=== PATIENT | female | born 2000 | race Caucasian/White ===

== ENCOUNTER → 2018-01-26 12:52 | Outpatient (REF) | payer OTHER, SELFPAY ==
[2018-01-27 15:00] LABS: Chlamydia Result Negative; Specimen Description CERVIX
== END ==
LOC: LBN 12:52
PROVIDERS: PCP Pediatrics; Visit Provider Obstetrics & Gynecology Gynecology
DX: Z20.2 Contact with and (suspected) exposure to infections with a predominantly sexual mode of transmission (principal)
CPT/HCPCS: 87491

== ENCOUNTER 2018-05-04 14:48 | Outpatient (REF) | payer OTHER, SELFPAY ==
[2018-05-06 14:49] LABS: Chlamydia Result Negative; GC Result Negative; Specimen Description URINE
== END 2018-05-04 15:08 ==
LOC: LBN 14:48
PROVIDERS: PCP Pediatrics; Visit Provider Registered Nurse
DX: Z11.3 Encounter for screening for infections with a predominantly sexual mode of transmission (principal)
CPT/HCPCS: 87491; 87591

== ENCOUNTER 2019-01-23 07:36 | Day surgery (SDC) | payer OTHER, SELFPAY ==
[2019-01-23] VITALS (7 sets, daily range): BP systolic 128–156; BP diastolic 79–107; PULSE 65–94; RESP 16–24; TEMP 36.2–36.7; O2SAT 99–100
[2019-01-23] MEDS: Lactated Ringers 1,000 ML 80 ML IV (08:20)
--- NOTE | 2019-01-23 08:45 | W.PM.DSUDISC ---
Discharge Plan Disposition Patient Disposition: HOME Condition: Good Discharge Details Reason For Visit: T & A Attending Provider: Miguel Ángel Griggs Primary Care Provider: Karina Sanders Home Meds and New Rx's Prescriptions: No Action Nexplanon 68 MG implant 68 mg SQ ONCE Qty: 1 RF: 0 fluoxetine 20 mg capsule 20 mg PO DAILY Qty: 90 RF: 2 melatonin 5 mg Tablet 5 mg PO HS PRNRF: 0 Discharge Instructions Additional Instructions: see sheet Activity:: Activity as Tolerated Remove Dressings/Wound Care:: 24 hours Shower/Bathe:: 24 hours Diet:: As Tolerated DS: Diagnosis Discharge Diagnosis (1) Tonsillar hypertrophy: Status: Acute (2) Tonsillar calculus: Status: Acute (3) Chronic tonsillitis: Status: Chronic
[2019-01-23] MEDS: Oxymetazolone 0.05% SPRAY 15 ML BTL (09:03)
--- NOTE | 2019-01-23 09:10 | TONSIL_PTH ---
PATIENT: Paulette Harris LOC: [facility] U#:[id number] AGE/SX: 18/F ROOM: RE01/23/[address]: Miguel Ángel Griggs DO : 2000 BED: DIS: 01/23/2019 SPEC #: [id number] RECD: 01/23/19 12:38 STATUS: BEVERLY REQ #: [id number] KATHY: 01/23/19 09:[address]: Miguel Ángel Griggs DEPT: Surgical Specimen RECD BY: Karen Lan ENTERED: 01/23/19 12:39 SP TYPE: TONSIL OTHR DR: Karina Sanders APRN Tissues: 1 - TONSIL AGE 17 & OVER 2 - TONSIL AGE 17 & OVER Procedures: GROSS AND MICRO LEVEL 3 Comments: [id number]
--- NOTE | 2019-01-23 11:20 | ROE_ITS ---
DATE OF PROCEDURE: January 23, 2019 PREOPERATIVE DIAGNOSIS: 1. Chronic recurring tonsillitis. 2. Chronic tonsillar hypertrophy. 3. Chronic tonsillar calculus. POSTOPERATIVE DIAGNOSIS: Same. PROCEDURE: Tonsillectomy. SURGEON: Miguel Ángel Griggs D.O. ANESTHESIA: General. ESTIMATED BLOOD LOSS: 1 cc COMPLICATIONS: None. CONDITION: The patient tolerated the procedure well. INDICATIONS FOR PROCEDURE: This is a pleasant 18-year-old female who presents with a history of jailor jeremiah tonsillar infection, hypertrophy and calculi bilaterally. The decision was made forth to proceed with surgery. Risks and complications were discussed in detail. Consent was placed in the Chart. PROCEDURE IN DETAIL: Patient was brought back to the operating suite in stable condition, placed sup ine on the operating table, and intubated in normal fashion. The table was rotated 90 degrees. There was no evidence of submucosal clefting or bifid uvula. The McIvor retractor was placed in the oral ca vity and suspended from the Curtis stand. The right tonsil was grasped in the superior pole and mediali zed. Pinpoint cautery was used to develop the peritonsillar fascial plane, dissection was carried out to the upper and mid portions of the tonsil with final amputation conducted with suction cautery. Th ere was no bleeding within the right tonsillar fossa. Next, the left tonsil was grasped in the super ior pole with a curved Allis forceps and medialized. Pinpoint cautery was used to develop the periton sillar fascial plane. Dissection was carried out in the plane in the superior and mid portion of the tonsils. Final amputation was conducted with suction cautery without bleeding within left fossa, Vals flaherty was performed without bleeding. TMJ's were checked and were free of dislocation. Gastric content s suctioned. The patient tolerated the procedure well and went to PACU in stable condition.
== END 2019-01-23 11:15 | disposition home or self-care (01) ==
PROVIDERS: PCP Nurse Practitioner; Visit Provider Otolaryngology Otolaryngology/Facial Plastic Surgery
PROC: (CPT 42826; principal; 2019-01-23 08:30)
DX: J35.01 Chronic tonsillitis (principal); J35.8 Other chronic diseases of tonsils and adenoids
CPT/HCPCS: 42826; 81025; 88304; J0131; J1100; J1200; J2250; J2405; J3010

== ENCOUNTER 2020-01-03 13:47 | Outpatient (REF) | payer OTHER, SELFPAY ==
--- NOTE | 2020-01-03 13:00 | PAPFT_PTH ---
PATIENT: Paulette Harris LOC: N U#:[id number] AGE/SX: 19/F ROOM: RE01/03/[address]: Rosenda Blum NP : 2000 BED: DIS: 01/03/2020 SPEC #: [id number] RECD: 01/03/20 18:14 STATUS: BEVERLY REIlene #: [id number] KATHY: 01/03/20 13:[address]: Rosenda Blum NP DEPT: [facility] Cytology RECD BY: Karen Lan ENTERED: 01/03/20 18:15 SP TYPE: PAPFT OTHR DR: Karina Sanders APRN Tissues: 1 - CX/ENDOCX FOR PAP SMEARS Procedures: PAP THIN PREP/UVM Screening Comments: [id number] (CHLAMYDIA/GC)
[2020-01-04 14:37] LABS: Chlamydia Result Negative (Negative); GC Result Negative (Negative)
== END 2020-01-03 14:07 ==
LOC: LBN 13:47
PROVIDERS: PCP Nurse Practitioner; Visit Provider Nurse Practitioner Women's Health
DX: Z12.4 Encounter for screening for malignant neoplasm of cervix (principal)
CPT/HCPCS: 87491; 87591; 88142

== ENCOUNTER 2023-08-30 17:13 | Emergency (ER) | payer BC, SELFPAY ==
[2023-08-30 17:20] VITALS: BP 142/124; PULSE 99; RESP 20; TEMP 37.1; O2SAT 99
--- NOTE | 2023-08-30 17:52 | NUR.NOTE ---
Nursing Note: This nurse went through patient belongings in the emergency department before going down to zone B.
--- NOTE | 2023-08-30 18:31 | W.ED.GENAD ---
Discharge Plan Discharge Details Chief Complaint: PsychEval Clinical Impression: Suicidal ideations, Depression Primary Care Provider: Caitlyn Espinoza ED Provider: Nilson Bradford Home Meds and New Rx's Prescriptions: No Action multivitamin Tablet 1 tab PO DAILY benztropine 1 mg tablet 1 mg PO BID mirtazapine 15 mg tablet 15 mg PO QHS lurasidone 40 mg tablet 40 mg PO ONCE HPI General Date/Time Provider Initiated Documentation: 08/30/23 17:23. Limitations to Documentation: no limitations. Information obtained by: patient. HPI Narrative: 23-year-old female with past medical history of anxiety and depression presents for evaluation of worsening depression. She reports that her symptoms has been significantly worsening over the last week. She states that as of today she does not feel safe at home. She is having significant suicidal ideations. She does not have a plan. She has not made an attempt. She states that she is struggling to force herself to eat, brush her teeth or go to work. She sees a psychiatrist for medication management, but she does not do therapy. She states that she has had voluntary inpatient psychiatric care before and that she feels like this would be very beneficial for her now. Related Data Home Medications Medication Instructions Recorded Confirmed multivitamin 1 tab PO DAILY 06/27/19 08/30/23 benztropine 1 mg tablet 1 mg PO BID 08/30/23 08/30/23 lurasidone 40 mg tablet 40 mg PO ONCE 08/30/23 08/30/23 mirtazapine 15 mg tablet 15 mg PO QHS 08/30/23 08/30/23 Allergies Allergy/AdvReac Type Severity Reaction Status Date / Time tramadol AdvReac Mild Diarrhea Verified 08/30/23 17:31 General Stated Complaint: PsychEval DASIA: 2 Exam Narrative Exam Narrative: Review of Systems: All systems reviewed & are unremarkable except as noted in HPI and below Well-developed, no acute distress NCAT PERRL, normal conjunctiva RRR Unlabored respiratory effort Nondistended abdomen Extremities w/o deformity, no cyanosis, no edema No rashes or lesions. no focal neurologic deficits Appropriate mood and affect Course Vital Signs Vital signs: Vital Signs Temperature 37.1 C 08/30/23 17:20 Pulse 99 H 08/30/23 17:20 Respiratory Rate 20 08/30/23 17:20 Blood Pressure 142/124 H 08/30/23 17:20 Pulse Oximetry 99 08/30/23 17:20 Temperature 37.1 C 08/30/23 17:20 Temperature Source Temporal Artery Scan 08/30/23 17:20 Pulse 99 H 08/30/23 17:20 Respiratory Rate 20 08/30/23 17:20 Respiratory Effort Normal 08/30/23 17:27 Blood Pressure 142/124 H 08/30/23 17:20 Blood Pressure Position Sitting 08/30/23 17:20 Pulse Oximetry 99 08/30/23 17:20 Oxygen Delivery Method Room Air 08/30/23 17:20 Oxygen Flow Rate 0 08/30/23 17:20 Pain Level 0 08/30/23 17:20 Medical Decision Making Emergent evaluation of depression and suicidal ideation. Patient denies any attempt, ingestion or overdose. Denies any drug or alcohol use. At this time using the smart form, she is medically cleared. A urinary test has been ordered as well given her age. The patient was evaluated by [facility], after discussion with them, she will be a voluntary placement for inpatient psychiatric care. Her home medications and a diet have been ordered. She is otherwise stable and pending placement at this time. Medical Records Medical records reviewed: Yes I reviewed the patient's medical records. Lab Data Lab results reviewed: Yes I reviewed the patient's lab results. Quality:[facility] Health Related Social Needs: No Data to Display [facility] All Active Problems (Updated 08/30/23 @ 18:34 by Nilson Bradford MD) Depression (Chronic) Suicidal ideations (Acute) IUD surveillance (Acute 01/03/20) [place] Anxiety and depression (Acute) Encounter to establish care (Acute) Anxiety (Chronic) generalized. Tonsillar hypertrophy (Acute) Tonsillar calculus (Acute) Chronic tonsillitis (Chronic) Seen by ENT 10/2018. Plan for removal. Medical History Chlamydia contact (01/10/18) Gastroesophageal reflux disease on Zantac as baby- outgrown Surgical History History of tonsillectomy (01/23/19) Family History Grandfather Asthma Grandmother Essential hypertension Mother Essential hypertension Anxiety Father Alcohol abuse Anxiety Depression Maternal Aunt Breast cancer Social History Smoking/Tobacco Use Status: Current every day Tobacco Type: e-cigarettes Smoking risk assessment performed?: Yes Alcohol Intake: current Alcohol Intake frequency: holidays/special occasions only Alcohol type: beer and hard liquor Drug use: Occasionally Substance use type: marijuana Details: Marijuana a few times a week Adopted: No Caregiver/Support person: No Foster care: No Communication Needs: None Do you need help understanding health information?: Never current occupation: Student Sexually active: Yes Do you think of yourself as: straight/heterosexual Current gender identity: female What type of physical activity do you participate in: walking and running Duration: 45-60 minutes/day Frequency: 3-4 times per week Seatbelt use: always Helmet use: Yes Drive intox 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
[2023-08-30] MEDS: Benztropine 1 MG TAB PO (20:23)
[2023-08-30] MEDS: Mirtazapine 15 MG TAB PO (21:46)
--- NOTE | 2023-08-31 00:23 | PDOC.MHCN ---
Date of service: 08/30/23 Time of Service: 18:00 PHQ-9 Over the last 2 weeks, how often have you been bothered by any of the following problems? 1. Little interest or pleasure in doing things: nearly every day 2. Feeling down, depressed, or hopeless: nearly every day 3. Trouble falling or staying asleep, or sleeping too much: nearly every day 4. Feeling tired or having little energy: nearly every day 5. Poor appetite or overeating: more than half the days 6. Feeling bad about yourself - or that you are a failure or have let yourself and your family down: nearly every day 7. Trouble concentrating on things, such as reading the newspaper or watching television: more than half the days 8. Moving or speaking so slowly that other people could have noticed? - Or the opposite - being so fidgety or restless that you have been moving around a lot more than usual: more than half the days 9. Thoughts that you would be better off or of hurting yourself in some way: nearly every day Total score: 24 If you checked off any problems, how difficult have these problems made it for you to do your work, take care of things at home, or get along with other people?: extremely difficult Source: Developed by Drs. Joo Gunn, Janki Villa, Samir Snyder and colleagues, with an educational paramjit from [employer]. Suicide Severity Rate CSSRS Have you wished you were or wished you could go to sleep and not wake up?: Yes Have you actually had any thoughts of killing yourself?: Yes CSSRS2 Have you been thinking about how you might do this?: Yes Have you had these thoughts and had some intention of acting on them?: No Have you started to work out or worked out the details of how to kill yourself? Do you intend to carry out this plan?: No CSSRS3 Have you ever done anything, started to do anything or prepared to do anything to end your life?: Yes CSSRS4 Was this within the past three months?: No Screening Score Total Score: 6 Screening: Positive Mental Health Emergency Note Release [facility] release signed:: Yes Reason for Visit In the last 2 weeks has the pt presented for ES prior to today?: No Non Suicidal Self Injury Current: No History: No Safety Risk/Harm to Self or Others Current Ideation to Harm Self or Others: Yes to self. Intent: no, has no intent. Plan: no.does not have a plan. History of suicide attempt: yes,history of suicide attempt reported. Details of previous suicide attempt: Clients last attempt was years ago Asssessment/Mental Status Appearance: Unremarkable Attitude: Cooperative and Friendly Behavior: Unremarkable Speech: Normal Affect: Cogruent with mood Mood: Other (Overwhelmed and tense ) Thought process: Unremarkable and Goal directed Hallucinations: No evidence Delusions: No evidence Attention: Unremarkable Perception: Not impaired Orientation: Fully orientated Memory: Intact Insight: Good Judgement: Good Neurovegetative Symptoms Sleep: Increase Appetitie: Disordered (Client reports not having an appetite and struggling to eat.) Interests: Decrease Energy: Decrease Libido: Not applicable Substance Use: Have you used substances in the last 7 days?: yes, Vaping everyday and THC occasionally Impression Client reported to this communications writer that she has been suffering from an increase in her suicidal ideations and depression over the last month, and an addition increase within the past two weeks that have made the client seek additional help and support. Client reported that her ideations include vague plans to end her life by suicide. Client reported not access to means at home. Client reported the usage of alcohol, THC, and vaping. Client reported that her sleep has increased but it is not restful. Client reported that she struggles with her appetite, and forcing herself to eat. Client reported a decrease in her energy and interests. CLient reported that her past inpatient stay at [facility] was the most help inpatient stay the client has experienced and is interest in going back. Plan/Disposition Recommended Disposition: Hospitalization No. Plan: Client will remain at [facility] ED until inpatient placement is found to help the client address her current depression and suicidal ideations. Client will need daily reassessments till placed. Client will need an intake packet completed.? Reports/communication Outcome discussed with: ED/Personnel
[2023-08-31] MEDS: Benztropine 1 MG TAB PO (10:31)
[2023-08-31 11:48] VITALS: BP 109/69; PULSE 70; RESP 16; O2SAT 100
[2023-08-31] MEDS: Lurasidone 40 MG TAB PO (11:55)
[2023-08-31 12:16] LABS: Bilirubin Negative (Negative); Blood Negative (Negative); Clarity Clear (Clear); Glucose Negative (Negative); Ketones Negative (Negative); Leukocyte Esterase Trace (Negative); Nitrite Negative (Negative); Specific Gravity 1.025 (1.005-1.025); Urobilinogen 0.2 mg/dL (Up to 0.2)
[2023-08-31 12:24] LABS: Bacteria Many HPF (Negative); Crystals Negative HPF (Negative); Epithelial Cells Many HPF (Negative); Mucus Moderate (Negative); RBC 0-2 HPF (0-2)
[2023-08-31 12:25] LABS: C & S Indicated? No/Sq. Contamination; Casts Negative LPF (Negative)
[2023-08-31 12:30] LABS: *AMPHETAMINES SCREEN URINE Negative (Negative); *BARBITURATES SCREEN URINE Negative (Negative); *BENZODIAZEPINES SCREEN URINE Negative (Negative); Cannabinoids THC Positive (Negative); Cocaine Screen,Urine Negative (Negative); METHADONE URINE SCREEN Negative (Negative); OPIATES URINE SCREEN Negative (Negative)
[2023-08-31 12:31] LABS: Tricyclic Antidepressants Negative (Negative)
--- NOTE | 2023-08-31 14:29 | W.EDPROG ---
Date of service: 08/31/23 Time of Service: 14:29 Medical Decision Making Patient accepted at [place]. Resting actively no acute distress Quality:SDOH Health Related Social Needs: No Data to Display Sign Out Sign Out Data: Sign Out Comment: depression with increasing symptoms + SI, no attempt medically cleared eval'd by [facility], recommend voluntary placement. pending placement. home meds have been ordered. Last updated by Nilson Bradford MD at 08/30/23 21:53 Sign Out Comment: Depression and suicidal ideation, voluntary, pending placement. No interventions during shift Last updated by Armando Powell DO at 08/31/23 07:19 Discharge Plan Disposition Patient Disposition: Psychiatric Hospital/Unit Specific Psychiatric Facility: [facility] Condition: Stable Discharge Details Chief Complaint: PsychEval Clinical Impression: Suicidal ideations, Depression Primary Care Provider: Caitlyn Espinoza ED Provider: Romel Suárez Home Meds and New Rx's Prescriptions: No Action multivitamin Tablet 1 tab PO DAILY benztropine 1 mg tablet 1 mg PO BID mirtazapine 15 mg tablet 15 mg PO QHS lurasidone 40 mg tablet 40 mg PO ONCE
--- NOTE | 2023-08-31 14:58 | W.EDPROG ---
Date of service: 08/31/23 Time of Service: 14:58 Medical Decision Making Provider to provider signout has been given to Casey Lay at [facility]. Patient accepted for transfer to for inpatient psychiatric care. Quality:[facility] Health Related Social Needs: No Data to Display Sign Out Sign Out Data: Sign Out Comment: depression with increasing symptoms + SI, no attempt medically cleared eval'd by [facility], recommend voluntary placement. pending placement. home meds have been ordered. Last updated by Nilson Bradford MD at 08/30/23 21:53 Sign Out Comment: Depression and suicidal ideation, voluntary, pending placement. No interventions during shift Last updated by Armando Powell DO at 08/31/23 07:19 Discharge Plan Disposition Patient Disposition: Psychiatric Hospital/Unit Specific [facility] Condition: Stable Discharge Details Clinical Impression: Suicidal ideations, Depression Primary Care Provider: Caitlyn Espinoza ED Provider: Romel Suárez Home Meds and New Rx's Prescriptions: No Action multivitamin Tablet 1 tab PO DAILY benztropine 1 mg tablet 1 mg PO BID mirtazapine 15 mg tablet 15 mg PO QHS lurasidone 40 mg tablet 40 mg PO ONCE
--- NOTE | 2023-08-31 15:36 | PDOC.MHPN2 ---
Date of service: 08/31/23 Time of Service: 11:00 PHQ-9 Over the last 2 weeks, how often have you been bothered by any of the following problems? 1. Little interest or pleasure in doing things: several days 2. Feeling down, depressed, or hopeless: several days 3. Trouble falling or staying asleep, or sleeping too much: several days 4. Feeling tired or having little energy: several days 5. Poor appetite or overeating: several days 6. Feeling bad about yourself - or that you are a failure or have let yourself and your family down: several days 7. Trouble concentrating on things, such as reading the newspaper or watching television: not at all 8. Moving or speaking so slowly that other people could have noticed? - Or the opposite - being so fidgety or restless that you have been moving around a lot more than usual: not at all 9. Thoughts that you would be better off or of hurting yourself in some way: several days Total score: 7 Source: Developed by Drs. Joo Gunn, Janki Villa, Samir Snyder and colleagues, with an educational paramjit from [employer]. Suicide Severity Rate CSSRS Have you wished you were or wished you could go to sleep and not wake up?: No Have you actually had any thoughts of killing yourself?: Yes CSSRS2 Have you been thinking about how you might do this?: No Have you had these thoughts and had some intention of acting on them?: No Have you started to work out or worked out the details of how to kill yourself? Do you intend to carry out this plan?: No CSSRS3 Have you ever done anything, started to do anything or prepared to do anything to end your life?: No Screening Score Total Score: 2 Screening: Positive Mental Health Emergency Note Release [facility] release signed:: Yes Reason for Visit SI and depression In the last 2 weeks has the pt presented for ES prior to today?: No Client Information Client is: Adult Outpatient Well Housed: Yes Non Suicidal Self Injury Current: No History: No Safety Risk/Harm to Self or Others Current Ideation to Harm Self or Others: No Risk: Does risk to harm exist?: No Risk: Low Risk Duty to warn indicated: No Asssessment/Mental Status Appearance: Unremarkable and Other Attitude: Cooperative Behavior: Unremarkable Speech: Normal Affect: Cogruent with mood Mood: Stressed and Depressed Thought process: Goal directed Hallucinations: No Delusions: No Attention: Unremarkable Perception: Not impaired Orientation: Fully orientated Memory: Intact Insight: Fair Judgement: Fair Neurovegetative Symptoms Sleep: Increase Appetitie: Decrease Interests: Decrease Energy: Decrease Libido: Not applicable Substance Use: Other Drug Issues: Other Do you use nicotine?: Yes Have you used substances in the last 7 days?: yes, Every few days Additional Issues: Assaultive/Threatening Behavior: No Medical Concerns: No Client engaged in active self harm w/weapon: No Threatening to run away: No Child reported abuse/neglect: No Voluntarily presenting for services: Yes Domestic violence is a concern: No Extreme Psychosis or extreme behavior is present: No Impression Client presented as alert, cooperative, emotional, and stressed. Resources Reosurces reviewed and given:: 988 and Community therapist Plan/Disposition Recommended Disposition: Hospitalization facilities contacted, Therapy and Med management. Plan: Client will go inpatient as of today to [facility] Reports/communication Outcome discussed with: ED/Personnel Final Disposition/Discharge Final accepting facility/transferred to: [facility]
--- NOTE | 2023-08-31 17:23 | CMPROGNOTE_ITS ---
Date of service: 08/31/23 Time of Service: 17:24 Care Management Progress Note Progress Note Text Progress Note Text: Kaycee has been accepted for transfer to [facility] for voluntary inpatient psychiatric treatment. She will transport via [facility]. SDOH(Care Management) Screening Will the Patient Participate in the Screening?: Unable to obtain
== END 2023-08-31 16:15 ==
PROVIDERS: Emergency Provider Emergency Medicine; PCP Nurse Practitioner Family
DX: F32.A Depression, unspecified (principal); R45.851 Suicidal ideations
CPT/HCPCS: 00123; 80307; 96127; 99285; 81003; 81015

== ENCOUNTER 2023-12-06 11:38 | Outpatient (REF) | payer BC, SELFPAY ==
--- NOTE | 2023-12-06 11:15 | PAPFT_PTH ---
PATIENT: Paulette Harris LOC: [facility] U#:[id number] AGE/SX: 23/F ROOM: RE12/06/[address]: Rosenda Blum NP : 2000 BED: DIS: 12/06/2023 SPEC #: [id number] RECD: 12/06/23 13:01 STATUS: BEVERLY REIlene #: [id number] KATHY: 12/06/23 11:[address]: Rosenda Blum NP DEPT: [facility] Cytology RECD BY: Karen Lan ENTERED: 12/06/23 13:02 SP TYPE: PAPFT OTHR DR: Caitlyn Espinoza Tissues: 1 - CX/ENDOCX FOR PAP SMEARS Procedures: PAP THIN PREP/[facility] Screening Comments: [id number]
== END 2023-12-06 11:39 | disposition home or self-care (01) ==
LOC: LBN 11:38
PROVIDERS: PCP Nurse Practitioner Family; Visit Provider Nurse Practitioner Women's Health
DX: Z30.431 Encounter for routine checking of intrauterine contraceptive device (principal); F41.9 Anxiety disorder, unspecified; Z12.4 Encounter for screening for malignant neoplasm of cervix
CPT/HCPCS: 88142

== ENCOUNTER 2024-07-17 01:21 | Outpatient (CLI) | payer BC, SELFPAY ==
[2024-07-17 11:59] LABS: Abs Immature Grans 0.02 10^3/uL (0.0-0.06); Absolute Basophil Count 0.03 10^3/uL (0.0-0.2); Absolute Eosinophil Count 0.05 10^3/uL (0.0-0.7); Absolute Lymphocyte Count 1.35 10^3/uL (1.2-3.4); Absolute Monocyte Count 0.41 10^3/uL (0.1-0.8); Basophils % 0.6 %; HCT 40.9 % (36.0-46.0); HGB 14.6 g/dL (11.2-15.7); Immature Grans % 0.4 %; Lymphocytes % 26.2 %; MCH 30.4 pg (27.0-33.0); MCHC 35.7 % (32.0-36.0); MCV 85 fL (80-95); MPV 9.2 fL (8.0-11.0); Monocytes % 7.9 %; Neutrophils % 63.9 %; Platelet Count 335 10^3/uL (130-400); RBC 4.81 10^6/uL (3.93-5.22); RDW 11.8 % (11.7-14.6); RDW-SD 36.3 fL; WBC 5.16 10^3/uL (4.4-10.8)
== END 2024-07-17 01:22 | disposition home or self-care (01) ==
PROVIDERS: PCP Nurse Practitioner Family; Visit Provider Obstetrics & Gynecology
DX: Z01.818 Encounter for other preprocedural examination (principal)
CPT/HCPCS: 36415; 86850; 86900; 86901; 85025

== ENCOUNTER 2024-07-18 06:05 | Day surgery (SDC) | payer BC, SELFPAY ==
[2024-07-18] VITALS (19 sets, daily range): BP systolic 99–135; BP diastolic 59–89; PULSE 65–86; RESP 5–30; TEMP 36.2–36.7; O2SAT 95–100; BMI 29.9
--- NOTE | 2024-07-18 06:25 | W.ANESPRE ---
General Info Date of Service Date Performed: 07/18/24 Height: 5 ft 1 in Weight: 71.894 kg Body Mass Index (BMI): 29.9 Surgical Procedure: Operation Date: 07/18/24 07:40 Proposed Procedure Side Surgeon p Salpingectomy Laparoscopic Bilateral Hui Donald MD Meds Allergies and Home Medications Allergies Allergy/AdvReac Type Severity Reaction Status Date / Time tramadol AdvReac Mild Diarrhea Verified 07/18/24 06:36 Home Medication ?Medication ?Instructions ?Recorded benztropine 1 mg tablet 1 mg PO BID 08/30/23 mirtazapine 15 mg tablet 15 mg PO QHS 08/30/23 hydroxyzine HCl 50 mg tablet 50 mg PO QHS PRN 12/06/23 lurasidone 40 mg tablet 60 mg PO QAM 12/06/23 levonorgestrel 17.5 mcg/24 hr (up 1 device intrauterine ONCE 02/07/24 to 5 yrs) 19.5mg intrauterine device (Kyleena) magnesium 250 mg tablet 250 mg PO DAILY 07/11/24 melatonin 5 mg tablet 5 mg PO HS PRN 07/11/24 oxycodone 5 mg capsule 5 mg PO Q8H PRN pain #5 caps 07/11/24 Current Visit Medications: Current Medications Generic Name Dose Route Start Last Admin Trade Name Freq PRN Reason Stop Dose Admin Ringer's Solution 1,000 mls @ 125 mls/hr 07/18/24 06:00 IV 08/16/24 23:59 INFUSION JARON IV Miscellaneous Supplies 1 each 07/18/24 06:00 Iv Access IV 08/16/24 23:59 DIRECTED JARON Sodium Chloride 0 ml 07/18/24 06:00 Normal Saline Flush 10 Ml Syr IV 08/16/24 23:59 PRN PRN Sodium Chloride 0 ml 07/18/24 06:00 Normal Saline 10 Ml Vial IJ 08/16/24 23:59 DIRECTED PRN Sterile Water 0 ml 07/18/24 06:00 Water,Injection,Sterile 10 Ml Vial IJ 08/16/24 23:59 DIRECTED PRN PFSH Active Problems Active Problems: Problem Status Onset Code Anxiety and depression Acute F41.9, F32.9 Tonsillar hypertrophy Acute J35.1 Tonsillar calculus Acute J35.8 Chronic tonsillitis Chronic J35.01 Medical History Medical History Bipolar 2 disorder IUD surveillance (01/03/20) Kyleena Chlamydia contact (01/10/18) Gastroesophageal reflux disease on Zantac as baby- outgrown Surgical History Surgical History History of tonsillectomy (01/23/19) Tobacco Smoking/Tobacco Use Status: Current every day Tobacco Type: e-cigarettes Alcohol Alcohol Intake: current Alcohol intake frequency: holidays/special occasions only Alcohol type: beer and hard liquor Substance Use Substance use: Daily Substance use type: marijuana Prental History History 0 Para Hx # Term Pregnancies Multiple births Hx # Pregnancies Ectopic pregnancies AB induced Hx Number of Living Children AB spontaneous Vital Signs and Lab Results Vital Signs Most Recent Vital Signs in EMR: Pulse Resp BP Pulse Ox 86 16 135/89 99 07/18/24 06:20 07/18/24 06:20 07/18/24 06:20 07/18/24 06:20 Temp Pulse Resp BP Pulse Ox 36.7 C 86 16 135/89 99 07/18/24 06:20 07/18/24 06:20 07/18/24 06:20 07/18/24 06:20 07/18/24 06:20 Lab Results Blood Type / Crossmatch: Antibody Screen NEGATIVE 07/17/24 Complete Blood Count: White Blood Count 5.16 10^3/uL (4.4-10.8) 07/17/24 11:35 Red Blood Count 4.81 10^6/uL (3.93-5.22) 07/17/24 11:35 Hemoglobin 14.6 g/dL (11.2-15.7) 07/17/24 11:35 Hematocrit 40.9 % (36.0-46.0) 07/17/24 11:35 Platelet Count 335 10^3/uL (130-400) 07/17/24 11:35 Complete Metabolic Panel: No Data to Display Liver Function Panel: No Data to Display Coagulation Panel: No Data to Display Cardiac Panel: No Data to Display Arterial Blood Gas: No Data to Display Venous Blood Gas: No Data to Display Pancreas Panel: No Data to Display Thyroid Panel: No Data to Display Infectious Disease: No Data to Display Blood Cultures: No Data to Display Toxicology Panel: No Data to Display Panel: No Data to Display Anesthesia Assessment and Plan Anesthesia History Personal History: No History of Anesthesia Complications Family History: No Family History of Anesthesia Complications Exercise Tolerance Exercise Tolerance: Metabolic Equivalents>4 Cardiac & Pulmonary Exam Cardiac Exam: Normal S1/S2 Heart Sounds Pulmonary Exam: Clear Bilateral Breath Sounds Implantable Cardiac Device Does patient have a Pacemaker or an ICD?: No Airway Exam Known Difficult Airway: No Mallampati Class: 3 Mouth Opening: Narrow (< 3cm) Thyromental Distance: Greater than 3 cm Neck Range of Motion: Full ROM Neck Circumference: Normal Teeth Condition: Normal Dentition ASA Classification ASA Score: ASA 2 Emergency Case?: No NPO Status NPO Status: NPO Clears >2 hours, Solids >8 hours Status Status: Negative HCG Anesthesia Plan Resuscitation Status: Full Code Anesthesia Technique: General Anesthesia Airway Planned: Endotracheal Tube Monitors Used: Standard Monitors Preoperative Comments:: 23 yo female for lap salping. Sig PMHx: anxiety/depression (mirtazapine), bipolar (lurasidone). smoker, occ EtOH. Previous Anes: - tonsils, vick 2 grade 1, easy mask. Denies GERD, appropriately NPO.
[2024-07-18] MEDS: Lactated Ringers 1,000 ML 125 ML IV (06:47)
[2024-07-18] MEDS: Bupivacaine 0.25% Pres-Free 30 ML VIAL (08:13)
--- NOTE | 2024-07-18 08:17 | FALL_PTH ---
PATIENT: Paulette Harris LOC: [facility] U#:[id number] AGE/SX: 23/F ROOM: RE07/18/[address]: Hui Donald MD : [id number] BED: DIS: 07/18/2024 SPEC #: [id number] RECD: 07/18/24 12:53 STATUS: BEVERLY REIlene #: [id number] KATHY: 07/18/24 08:[address]: Hui Donald DEPT: Surgical Specimen RECD BY: Karen Lan ENTERED: 07/18/24 12:54 SP TYPE: Fall OTHR DR: Caitlyn Espinoza Tissues: 1 - FALLOPIAN TUBE (STERILIZATION) 2 - FALLOPIAN TUBE (STERILIZATION) Procedures: GROSS AND MICRO LEVEL 2 Comments: [id number]
--- NOTE | 2024-07-18 08:57 | W.ANESPOSTOP ---
Postoperative Evaluation Date, Time and Location Date Performed: 07/18/24 Time Performed: 08:57 Patient Location: PACU Vital Signs Most Recent Imported Vital Signs: Most Recent Vital Signs Temp Pulse Resp BP Pulse Ox 36.3 C L 76 5 L 106/62 95 07/18/24 08:51 07/18/24 08:51 07/18/24 08:51 07/18/24 08:50 07/18/24 08:51 Pain Score Most Recent Pain Score: Most Recent Pain Score Pain Level 0 07/18/24 08:51 Assessment Mental Status: Arousable with meaningful communication Airway and Respiratory Function: Patent airway with normal (patient baseline) respiratory exam Cardiovascular Function: Hemodynamically Stable Hydration Status: Adequately Hydrated Nausea & Vomiting: No Nausea or Vomiting Pain: Pain is tolerable per patient Peripheral Nerve Block: Patient did not receive a nerve block
[2024-07-18] MEDS: HYDROmorphone 1 MG/ML SYR IVP (08:58)
--- NOTE | 2024-07-18 09:08 | ROE_ITS ---
Operative Note Operative Note PRE-OP DIAGNOSIS: desires permanent sterilization POST-OP DIAGNOSIS: same PROCEDURE: Laparoscopic bilateral salpingectomy, removal of intrauterine device SURGEON: Hui Donald ASSISTING SURGEON: Eliane Campbell Refer to Anesthesia Record ESTIMATED BLOOD LOSS: 10 PATHOLOGY: other (tubes) COMPLICATIONS: None Patient was transported to: PACU Patient's condition: stable Indications: Pt has long been adamant that she never wants to carry a . She had a Kyleena IUD in place for contraception for 4.5yrs and desired removal of this at the same time. Findings: Normal appearing uterus, ovaries and tubes. Normal appearing appendix and upper abdomen on brief survey. Procedure Description: After informed consent was signed the patient was taken to the operating room and given general anesthesia.? SCDs were placed on her legs.? She was prepped and draped in the dorsal lithotomy position in the [facility].? Her bladder was drained of urine prior to arrival in the OR. A speculum was placed into the vagina to expose the cervix and a hulka manipulator was placed into the cervix. The speculum was removed. Gloves were changed and attention was turned to the abdomen. The infraumbilical fold was grasped and injected with 0.25% marcaine with epinephrine. A 5mm incision was made in the infraumbilical fold with the scalpel. A hemostat was used to bluntly dissect the subcuticular layers. The fascia was grasped with butch clamps and incised. The incision was extended with blunt pressure. The visiport was used to enter the abdomen under direct visualization. Once entrance to the abdominal cavity was confirmed the CO2 was turned on and the abdomen was insufflated. Two lateral 5mm ports were then placed under direct visualization. The left tube was identified and followed to the fimbriated end. The tube was grasped and elevated and the mesosalpinx was clamped, cauterized and cut with the ligasure device. The was continued along the length of the tube. The proximal end of the tube was then transected with the ligasure. Good hemostasis was noted. The right tube was then identified and followed to the fimbriated end. The tube was grasped and elevated and the mesosalpinx was clamped, cauterized and cut with the ligasure device. The was continued along the length of the tube. The proximal end of the tube was then transected with the ligasure. Good hemostasis was noted on both sides. The tubes were removed individually through the ports and noted to be intact. The ports were removed. The gas was released from the abdomen. The skin incisions were then closed with 4-0 vicryl. Mastisol and steristrips were placed. The manipulator was removed. The patient was placed back into the supine position.? She was moved to the stretcher and taken to the recovery room in stable condition. Date of Procedure: 07/18/24
== END 2024-07-18 10:11 | disposition home or self-care (01) ==
PROVIDERS: PCP Nurse Practitioner Family; Visit Provider Obstetrics & Gynecology
PROC: (CPT 58661; principal; 2024-07-18 07:30)
PROC: (CPT 58661; 2024-07-18 07:30)
DX: Z30.2 Encounter for sterilization (principal); Z30.432 Encounter for removal of intrauterine contraceptive device; N83.8 Other noninflammatory disorders of ovary, fallopian tube and broad ligament
CPT/HCPCS: 58661; 58301; 88302; J0131; J0665; J1100; J1171; J1885; J2250; J2405; J2704; J3475